=== PATIENT | female | born 1955 | race Caucasian/White ===

== ENCOUNTER 2016-05-30 12:53 | Emergency (ER) | payer BC ==
[2016-05-30 13:12] VITALS: BP 146/70; PULSE 91; RESP 18; TEMP 97.5
--- NOTE | 2016-05-30 13:50 | ED ---
General Adult HPI - General Chief complaint: ENT Stated complaint: DR Sent/Nose problems Time Seen by Provider: 05/30/16 13:40 Source: patient, RN notes reviewed Mode of arrival: ambulatory Limitations: no limitations - History of Present Illness Initial comments: This is a 60-year-old female who presents with history of epistaxis. Patient states she had her nose cauterized on Monday by Dr. Ann. Patient also had a nasal patch placed and removed for the same problem. Patient noticed some epistaxis off and on this morning and called Dr. Ann who stated that she should come to the for nasal packing. Patient states she got the bleeding to stop but it easily starts back up again. Patient is not on any anticoagulants. Patient is up-to-date on her tetanus shot. Patient denies any recent fever, chills, shortness breath, chest pain, abdominal pain, nausea/ vomiting/diarrhea, back pain, numbness, tingling, hematuria, headache, or visual changes, or any other complaints. - Related Data Previous Rx's Medication Instructions Recorded Amoxic-Pot Clav 875-125Mg 1 tab PO Q12HR 4 Days 05/30/16 [Augmentin 875-125] Allergies Allergy/AdvReac Type Severity Reaction Status Date / Time cefaclor [From Ceclor] Allergy Anaphylaxis Verified 05/30/16 13:13 amoxicillin [From Augmentin] AdvReac Nausea & Verified 05/30/16 13:13 Vomiting & Diarrhea clavulanic acid AdvReac Nausea & Verified 05/30/16 13:13 [From Augmentin] Vomiting & Diarrhea Review of Systems ROS Statement: Those systems with pertinent positive or pertinent negative responses have been documented in the HPI. ROS Other: All systems not noted in ROS Statement are negative. Past Medical History Past Medical History: Asthma, Hypertension Additional Past Medical History / Comment(s): seasonal History of Any Multi-Drug Resistant Organisms: None Reported Additional Past Surgical History / Comment(s): ovarian cyst had mass removed from side Past Psychological History: No Psychological Hx Reported Smoking Status: Never smoker Past Alcohol Use History: None Reported Past Drug Use History: None Reported General Exam - General Exam Comments Initial Comments: General: The patient is awake and alert, in no distress, and does not appear acutely ill. Eye: Pupils are equal, round and reactive to light, extra-ocular movements are intact. No nystagmus. There is normal conjunctiva bilaterally. No signs of icterus. Ears: TMs pink and pearly with intact cone of light bilaterally. Normal external ear canals Nose: There is some dried blood present to the right nasal turbinates but no active bleeding. Left Nasal turbinate pink and moist. Mouth and throat: There are moist mucous membranes and no oral lesions. Neck: The neck is supple, there is no tenderness or JVD. Cardiovascular: There is a regular rate and rhythm. No murmur, rub or gallop is appreciated. Respiratory: Lungs are clear to auscultation, respirations are non-labored, breath sounds are equal. No wheezes, stridor, rales, or rhonchi. Musculoskeletal: Normal ROM, no tenderness. Strength 5/5. Sensation intact. Radial pulses equal bilaterally 2+. Neurological: A&O x 3. CN II-XII intact, There are no obvious motor or sensory deficits. Coordination appears grossly intact. Speech is normal. Skin: Skin is warm and dry and no rashes or lesions are noted. Psychiatric: Cooperative, appropriate mood & affect, normal judgment. Limitations: no limitations Course Vital Signs 05/30/16 13:08 Temperature 97.5 F L Pulse Rate 91 Respiratory 18 Rate Blood Pressure 146/70 O2 Sat by Pulse 98 Oximetry Procedures - Procedures Initial comment: Right nostril was sprayed with Afrin. Nasal packing was lubricated with 2% Xylocaine and applied to the right nostril. Nasal packing was expanded with Xylocaine with epi. Patient tolerated procedure well. Medical Decision Making - Medical Decision Making This is a 60-year-old female who presents for nasal packing. Patient sees Dr. Ann who suggested she come in for nasal packing. Patient states she has a follow-up appointment with Dr. Ann in the morning. There is no active epistaxis, but patient states the bleeding has been occurring on and off all morning. On physical exam there is some dried blood present to the right nasal turbinates but no active bleeding. Left Nasal turbinate pink and moist. Nasal packing was placed. I discussed that patient will be started on a course of Augmentin. Patient states she has taken this medication with no ALLERGIC reaction, but she does get nausea and diarrhea with augmentin. I discussed that patient should call Dr. Ann and follow-up with him. I discussed that patient can come back to the [facility] in 3 days for removal of nasal packing if this is not done by ENT. I discussed Tylenol and Motrin for any pain. I discussed return parameters. Discussed that patient should follow up with PCP in one to 2 days or return to the [facility] for any worsening symptoms or for any further concerns. Patient was receptive to this plan and patient will be discharged home. I discussed this case with attending physician Dr. Wells who agrees the plan as stated above. Disposition Clinical Impression: Epistaxis Disposition: HOME SELF-CARE Condition: Good Instructions: Nosebleed (ED) Additional Instructions: Please take antibiotics as prescribed. Please follow-up with ENT in the next 1- 2 days. Please use Tylenol or Motrin as needed for any pain. Please follow-up with family doctor in the next 2 days of symptoms have not improved. Please return to emergency room if the symptoms increase or worsen or for any other concerns. Prescriptions: Amoxic-Pot Clav 875-125Mg [Augmentin 875-125] 1 tab PO Q12HR 4 Days Referrals: Neyda Angulo MD [Primary Care Provider] - 1-2 days Luiz Stewart MD [STAFF PHYSICIAN] - 1-2 days Time of Disposition: 14:31
[2016-05-30] MEDS ORDERED: LIDOCAINE URO-JET JELLY 2% 5 ML KIT URETHRAL ONE (13:59)
[2016-05-30] MEDS ORDERED: OXYMETAZOLINE 0.05% NASL SPRAY 15 ML NASAL STA (14:00)
[2016-05-30] MEDS ORDERED: LIDOCAINE 1%-EPI 1:100,000 20 ML VIAL SQ STA (14:00)
== END 2016-05-30 14:35 | disposition home or self-care (01) ==
LOC: EC 12:53
DX: R04.0 Epistaxis (principal); Z88.0 Allergy status to penicillin; Z88.1 Allergy status to other antibiotic agents
CPT/HCPCS: 30901; 99283

== ENCOUNTER → 2017-04-14 | Outpatient (CLI) | payer BC ==
[2017-04-14 15:14] LABS: HCT 39.6 % (34.0-46.0); HGB 13.3 gm/dL (11.4-16.0); MCH 29.7 pg (25.0-35.0); MCHC 33.6 g/dL (31.0-37.0); MCV 88.3 fL (80.0-100.0); Mean Platelet Volume 8.6; Platelet Count 242 k/uL (150-450); RBC 4.49 m/uL (3.80-5.40); RDW 13.8 % (11.5-15.5); WBC 17.7 k/uL (3.8-10.6)
[2017-04-14 16:59] LABS: Appearance,BF Cloudy; Color,BF Orange; Nucleated Cells, Body Fluid 39150 /uL; RBC, Body Fluid 27950 /uL
[2017-04-14 17:07] LABS: Mononuclear WBC,Body Fluid 8 %; Polynuclear WBC,Body Fluid 92 %; Total Cells Counted,Body Fluid 100
[2017-04-14 17:12] LABS: Erythrocyte Sedimentation Rate 22 mm/hr (0-20)
[2017-04-14 19:00] LABS: Protein, Total 7.2 g/dL (6.2-8.2)
[2017-04-17 10:33] LABS: Albumin 4.38 g/dL (3.80-4.90); Gamma Globulin 1.05 g/dL (0.70-1.50)
== END | disposition home or self-care (01) ==
LOC: LABWHC1 14:53 → EDSTATUS 14:55
PROVIDERS: ATTEND Orthopaedic Surgery
DX: M16.11 Unilateral primary osteoarthritis, right hip (principal); M10.061 Idiopathic gout, right knee
CPT/HCPCS: 36415; 84165; 84550; 85027; 85652; 89050; 89060

== ENCOUNTER → 2018-07-25 | Outpatient (CLI) | payer BC ==
--- NOTE | 2018-07-25 14:06 | XR ---
EXAMINATION TYPE: XR knee complete RT DATE OF EXAM: 07/25/2018 CLINICAL HISTORY: Pain after fall injury one week ago. TECHNIQUE: Three views of the right knee are obtained. COMPARISON: None. FINDINGS: Well-defined lucency through the outer aspect of patella favors bipartite patella but shou ld be correlated with perhaps focal pain. There is no definitive acute fracture/dislocation evident i n right knee. There is severe narrowing and moderate to severe spurring patellofemoral compartment. T here is moderate lateral tibiofemoral compartment narrowing with mild spurring. There is mild to mode rate narrowing and spurring medial tibial femoral compartment. Increased density suprapatellar bursa suggests small joint effusion. Mild diffuse subcutaneous edema anteriorly is seen. IMPRESSION: Advanced patellofemoral joint arthropathy noted. Favor bipartite patella versus minimall y displaced vertical fracture. Correlate with point tenderness at this level recommended.
== END ==
LOC: RADXRMAIN 13:44
PROVIDERS: ATTEND Family Medicine
DX: M12.861 Other specific arthropathies, not elsewhere classified, right knee (principal)